=== PATIENT | male | born 1985 | race Caucasian/White ===

== ENCOUNTER 2016-08-01 13:07 | Emergency (ER) | payer OTHER ==
[2016-08-01 13:07] VITALS: O2SAT 99
[2016-08-01 13:16] VITALS: BP 113/74; PULSE 93; RESP 16; TEMP 97.9
[2016-08-01] MEDS ORDERED: TDAP VACCINE 0.5 ML SUS IM ONE ×2 (13:30→13:42)
== END 2016-08-01 14:02 | disposition home or self-care (01) | DRG 605 ==
LOC: ED 13:07
DX: S91.331A Puncture wound without foreign body, right foot, initial encounter (principal); W45.0XXA Nail entering through skin, initial encounter
CPT/HCPCS: 90715; 99282